=== PATIENT | male | born 1985 | race Caucasian/White ===

== ENCOUNTER 2024-04-27 15:32 | Emergency (ER) | payer OTHER, BC ==
[~2024-04-27] VITALS: Ht 182.9 cm; Wt 93.0 kg
[~2024-04-27 15:32] MED LIST: HYDACE5 PO; NAPR500 PO; PENVK500 PO
[2024-04-27 15:49] VITALS: BP 144/99
== END 2024-04-27 16:43 ==
LOC: ER 15:32
DX: S39.012A Strain of muscle, fascia and tendon of lower back, initial encounter (principal); X58.XXXA Exposure to other specified factors, initial encounter; F17.210 Nicotine dependence, cigarettes, uncomplicated
CPT/HCPCS: 99282